=== PATIENT | male | born 1995 | race Caucasian/White ===

== ENCOUNTER 2024-03-15 08:42 | Emergency (ER) | payer SELFPAY ==
[~2024-03-15] VITALS: Ht 177.8 cm; Wt 83.9 kg
[~2024-03-15 08:42] MED LIST: ALBU90OI INH; METPRE4DP PO; Percocet 5-3251 EACH PO
[2024-03-15 09:28] VITALS: BP 164/101
[2024-03-15] MEDS ORDERED: Albuterol 2.5 MG/3 ML VIAL INH SCH ×2 (10:00→10:30)
[2024-03-15] MEDS ORDERED: Dexamethasone Sod Phos 10 MG/ML 1ML VIAL PO ONE (10:00)
[2024-03-15] MEDS ORDERED: QVAR REDIHALE10.6 G2 INH (12:32)
[2024-03-15] MEDS ORDERED: ALBU90OI INH (12:32)
[2024-03-15] MEDS ORDERED: DECADRON6 M1 PO (12:34)
== END 2024-03-15 12:50 | disposition home or self-care (01) ==
LOC: ER 08:42
DX: R06.02 Shortness of breath (principal)
CPT/HCPCS: 94644; 94664; 99284-25; J1100